=== PATIENT | male | born 1985 | race Caucasian/White ===

== ENCOUNTER 2020-01-29 10:08 | Emergency (ER) | payer MEDICAID ==
[~2020-01-29] VITALS: Ht 177.8 cm; Wt 80.0 kg
[2020-01-29] MEDS ORDERED: LIDOcaine 1% W/epiNEPHrine 1:200,000 10ml vial IJ ONE (10:40)
[2020-01-29] MEDS ORDERED: TETanus/Pertussis (Acell)/Diphther VAC/PF (Tdap-Adult) 0.5ml syringe IMVAC ONE (10:40)
[2020-01-29] MEDS ORDERED: bacitracin 15gm ointment TP ONE (10:40)
[2020-01-29] MEDS ORDERED: CEPH250T PO (11:59)
[2020-01-29 12:08] VITALS: BP 124/74
== END 2020-01-29 12:09 | disposition home or self-care (01) ==
LOC: ER 10:08
DX: S01.511A Laceration without foreign body of lip, initial encounter (principal); F12.90 Cannabis use, unspecified, uncomplicated; Z72.89 Other problems related to lifestyle; Z79.2 Long term (current) use of antibiotics; W22.8XXA Striking against or struck by other objects, initial encounter; Y93.89 Activity, other specified; Y92.89 Other specified places as the place of occurrence of the external cause; Y99.8 Other external cause status
CPT/HCPCS: 12001; 12011; 90471; 90715; 99283